=== PATIENT | male | born 1980 | race Caucasian/White ===

== ENCOUNTER 2019-12-19 10:47 | Emergency (ER) | payer SELFPAY ==
[~2019-12-19] VITALS: Ht 177.8 cm; Wt 83.9 kg
[~2019-12-19 10:47] MED LIST: KLONOPIN1 MG ORAL
[2019-12-19 10:53] VITALS: BP 128/83
--- NOTE | 2019-12-19 10:54 | NUR ---
ED Nurse Note: Patient was brought in by ambulance from [facility] pharmacy, due to med refill. Per patient he went to [facility] in order to refil his seizure meds. Pharmacy did not refil it, he called 911 and asked paramedics to bring him in to the Hospital. Patient AAO x4, VSS at this time.
[2019-12-19] MEDS ORDERED: LORazepam 1mg tab ORAL ONE (11:00)
--- NOTE | 2019-12-19 11:02 | Emergency Room Report ---
History of Present Illness General Chief Complaint: Medication Refill Source: Patient Present Illness HPI 39M PMHx anxiety, PTSD, depression BIB for medication refill. Pt states that he usually takes clonazepam but ran out and has been unable to refill his prescription because he lost his ID. He went to [facility] a few days ago and was given a prescription for his meds but could not get to the pharmacy. He states he feels like he is going to go into withdrawal, otherwise denies and CP, CASON, SOB, n/v/d, vision changes, seizure, back pain, hemoptysis, leg swelling , or other physical complaints. Denies SI HI auditory or visual hallucinations The patient's symptoms were gradual onset, severity was moderate, duration since 1 day Quality: anxious Past medical history: PTSD, anxiety, depression Past surgical history: Denies Smoking: Denies Alcohol use: Denies Drug use: ++ Review of systems: CONST: No fevers or chills, No night sweats PULMONARY: No productive cough, No shortness of breath CARDIAC: No chest pain, No palpitations GI: No vomiting, No diarrhea , No melena_or_BRBPR : No dysuria, No hematuria, No discharge NEURO: No new_focal_weakness_or_numbness, No confusion, No vision changes 14 point Review of Systems is otherwise negative except per HPI Physical Exam: GENERAL: Awake_alert_ nontoxic, no acute distress Spo2 98% on RA NORMAL . Anxious appearing EYES: Extraocular muscles are intact. Conjunctivae clear. Lids without swelling ENT: External nose and ear normal_in_appearance. Oropharynx clear. Head_ atraumatic, Moist_oral_mucosa NECK: No JVD. No meningismus. No thyromegaly. Supple. Trachea midline RESP: Normal respiratory effort. Symmetric rise. No stridor. Clear_to_ auscultation_No_rales_No_wheezes CARDIAC: Tachycardic. Regular rhytm. No_significant pedal edema. ABDOMEN: Soft. Nondistended. Nontender_No_rebound_or_guarding. MSK: Normal muscle tone, without rigidity. Extremities without asymmetric deformity or swelling. SKIN: Warm and dry. No visible cyanosis or pallor NEUROLOGIC: Alert, oriented x3. Motor_and_sensation_grossly_intact. No truncal ataxia. Gait_normal Psych: Normal mood and affect, normal judgment and insight. No SI HI auditory or visual hallucination - COORDINATION OF CARE Case was discussed with: Patient Medical Decision Making/Plan: DDx: anxiety vs PTSD vs illicit drug use vs acute benzodiazepine withdrawal Pt is anxious appearing and afebrile. He is AOx4 without focal deficits. HR is mildly tachycardic, likely due to being out of his clonazepam. I performed a CURES check which shows that patient is dependent on clonazepam 1mg. I informed him that due to the fact that he already has a written prescription for his meds that I will be unable to write him for a repeat prescription to which he is understanding. I did give him a single dose of his clonazepam. I advised him not to drink alcohol while taking this medication or drive/ operate heavy machinery. He verbalizes his understanding. He has no physical complaints at this time to address. No SI HI or psychiatric complaint either. Pts symptoms resolved after clonazepam. I have instructed him to f/u with his therapist for continued management of his panick attacks, anxiety and PTSD. I have referred him to [facility] for care. I educated the patient on the current treatment plan including the risks, benefits, and alternatives. I also discussed the extent and limitations of the current evaluation. The patient expressed understanding and agreement with plan. I recommended PMD follow-up within 1-2 days. Also advised that the patient return to the Emergency Department as soon as possible if they experience any new, persistent, or worsening symptoms. 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 Nursing Documentation-PMH Hx Seizures: Yes Physical Exam Vital Signs Date Time Temp Pulse Resp B/P (MAP) Pulse Ox O2 Delivery O2 Flow Rate FiO2 12/19/19 10:42 98.4 116 20 128/83 (98) 98 Room Air Sp02 EP Interpretation: reviewed, normal Medical Decision Making Diagnostic Impression: Primary Impression: Encounter for medication refill Additional Impression: Anxiety Last Vital Signs Date Time Temp Pulse Resp B/P (MAP) Pulse Ox O2 Delivery O2 Flow Rate FiO2 12/19/19 10:53 98.4 20 128/83 98 Room Air 12/19/19 10:42 116 Disposition: HOME, SELF-CARE Admit Decision Time: 11:01 Condition: Stable Scripts Hydroxyzine Pamoate (VISTARIL) 25 Mg Capsule 25 MG PO DAILY for anxiety for 7 Days, #7 CAP Prov: Chanel Gardner D.O. 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 or drink while taking clonazepam Follow-up with your doctor sooner if your condition requires a more timely clinical reevaluation. Return to the emergency department immediately if you feel that your condition is worsening or if you have any new or concerning symptoms. Review your discharge instructions and take any prescriptions given as instructed. Chanel Gardner D.O. Dec 19, 2019 11:02
[2019-12-19] MEDS ORDERED: VISTARIL25 M1 PO (11:04)
--- NOTE | 2019-12-19 11:12 | NUR ---
ED Nurse Note: pt refused ativan and wants klonopin. ED MD made aware. Ativan wasted in pyxsis with YVAN Chang. Klonopin administered.
[2019-12-19 11:13] VITALS: BP 128/83
--- NOTE | 2019-12-19 11:15 | NUR ---
ED Nurse Note: Pt cleared by health care Provider for discharge. DC instructions/prescription was given and explained to pt and verbalized understanding of teachings. All medical deviecs such as ID band removed. Pt is AAO x4, ambulatory and left with all personal belongings.
== END 2019-12-19 11:15 | disposition home or self-care (01) ==
LOC: EDBD 10:47 → EMR 11:15
DX: F41.9 Anxiety disorder, unspecified (principal); Z76.0 Encounter for issue of repeat prescription; G40.909 Epilepsy, unspecified, not intractable, without status epilepticus; F32.9 Major depressive disorder, single episode, unspecified; F43.10 Post-traumatic stress disorder, unspecified; X58.XXXA Exposure to other specified factors, initial encounter; Y92.9 Unspecified place or not applicable
CPT/HCPCS: 99282